=== PATIENT | female | born 1965 | race Two or more races ===

== ENCOUNTER 2018-10-07 09:34 | Outpatient (CLI) | payer OTHER | END 2018-10-07 09:44 | disposition home or self-care (01) | LOC: SONOGRAMA 09:34 | DX: E04.1 Nontoxic single thyroid nodule (principal) ==

== ENCOUNTER 2018-11-27 07:10 | Day surgery (SDC) | payer OTHER | END 2018-11-27 12:10 | disposition home or self-care (01) | LOC: AMB-ENDOS 07:10 | DX: K64.8 Other hemorrhoids (principal); Z12.11 Encounter for screening for malignant neoplasm of colon ==

== ENCOUNTER 2024-12-03 06:00 | Day surgery (SDC) | payer OTHER ==
[2024-12-03] MEDS ORDERED: MIDAZOLAM HCL 2 MG/2 ML VIAL IV ONE (11:15)
[2024-12-03] MEDS ORDERED: DIPHENHYDRAMINE HCL 50 MG/ML VIAL 1ML IV ONE (11:15)
[2024-12-03] MEDS ORDERED: ONDANSETRON HCL 2 MG/ML VIAL IV ONE (11:15)
[2024-12-03] MEDS ORDERED: fentaNYL CITRATE 50 MCG/ML AMPUL IV PUSH ONE (11:15)
== END 2024-12-03 12:10 | disposition home or self-care (01) ==
LOC: AMB-ENDOS 06:00
PROVIDERS: ATTEND Colon & Rectal Surgery
DX: D12.4 Benign neoplasm of descending colon (principal); D12.5 Benign neoplasm of sigmoid colon; D12.3 Benign neoplasm of transverse colon; K62.5 Hemorrhage of anus and rectum; K63.5 Polyp of colon; K57.30 Diverticulosis of large intestine without perforation or abscess without bleeding; K62.0 Anal polyp

== ENCOUNTER 2025-02-09 08:00 | Outpatient (CLI) | payer OTHER ==
[~2025-02-09] VITALS: Ht 167.6 cm; Wt 68.0 kg
[2025-02-09] MEDS ORDERED: COZAAR25 MG PO (08:34)
[2025-02-09] MEDS ORDERED: METFORMIN HCL500 MG (08:34)
[2025-02-09 08:35] VITALS: BP 136/79
[2025-02-09 09:35] LABS: BASO % 0.3 % (0.1-1.2); EOS # 0.15 (0.04-0.54); EOS % 2.4 % (0.7-7.0); LYMPH # 1.47 (1.18-3.74); LYMPH % 23.8 % (19.3-53.1); MEAN PLATELET VOLUME 12.30 fl (9.4-12.4); MONO # 0.60 (0.24-0.82); MONO % 9.7 % (4.7-12.5); NEUT # 3.91 (1.56-6.13); NEUT % 63.5 % (34.0-71.1); RED CELL DISTRIBUTION WIDTH 11.9 % (11.6-14.4)
[2025-02-09 10:11] LABS: INR 1.0
[2025-02-09 10:18] LABS: URINE APPEARANCE Clear; URINE BILIRRUBIN Negative (NEGATIVE); URINE BLOOD Negative; URINE COLOR Yellow; URINE KETONE Negative (NEGATIVE); URINE LEUKOCYTE Moderate; URINE NITRATE Negative; URINE PROTEIN Negative (NEGATIVE); URINE UROBILINOGEN 0.2 E.U./dl
[2025-02-09 10:23] LABS: URINE EPITHELIAL CELLS 29.8 uL (0.0-38.8); URINE WBC 300.5 uL (0.0-23.2)
[2025-02-09 10:25] LABS: ALT/SGPT 25.0 U/L (12-78); AST/SGOT 21.0 U/L (15-37); BILIRUBIN TOTAL 0.59 mg/dL (0.3-1.2); BUN CREA RATIO 14.0 (7.0-25.0); CREATININE SERUM 0.9 mg/dL (0.55-1.02); GFR 63.65; GLOBULINA 3.1 G/DL (2.4-3.5); OSMOLALITY SERUM 292.0 MOSM/KG (275-295)
[2025-02-09 10:26] LABS: GLUCOSE FASTING 357.0 mg/dL (65-100)
[2025-02-09 10:27] LABS: URINE CAST 0.43 uL (0.0-1.40); URINE GLUCOSE >=1000 MG/DL (NEGATIVE); URINE RBC 1.0 uL (0.0-20.8)
== END 2025-02-09 08:30 | disposition home or self-care (01) ==
LOC: RAD 08:00 → ADM 02-10 10:15 → CIR.AMB 02-20 07:00 → EDSTATUS 02-20 10:15
PROVIDERS: ATTEND Colon & Rectal Surgery
DX: K62.0 Anal polyp (principal)